=== PATIENT | male | born 1975 | race Hispanic/Latino ===

== ENCOUNTER → 2017-07-07 | Outpatient (CLI) | payer OTHER ==
--- NOTE | 2017-07-10 08:14 | Diagnostic Imaging Report ---
TECHNIQUE: Magnetic resonance imaging of the left finger was performed without and with injected contrast. 20 mL of MultiHance. HISTORY: recurrent infection, long finger COMPARISON: None. FINDINGS: Bone marrow signal normal. No bone marrow edema or T1 replacement. No visualized foreign body/susceptibility artifact (however reported history of splinter would not be well visualized by MRI). Possible soft tissue swelling/edema soft tissues dorsal distal long finger (sagittal image 5 series 8). No fluid collection. No soft tissue mass. Flexor and extensor intact. IMPRESSION: Possible soft tissue swelling/edema soft tissues dorsal distal long finger. No osteomyelitis or visualized abscess. Signed by: Dr. Jb Monteiro M.D. on 07/10/2017 8:11 AM
== END ==
LOC: MRI 16:09
PROVIDERS: ATTEND Family Medicine
DX: L08.9 Local infection of the skin and subcutaneous tissue, unspecified (principal); R93.7 Abnormal findings on diagnostic imaging of other parts of musculoskeletal system